=== PATIENT | male | born 1970 | race Caucasian/White ===

== ENCOUNTER 2018-05-31 05:15 | Inpatient (IN) | payer OTHER ==
[2018-05-31] VITALS (16 sets, daily range): BP systolic 96–148; BP diastolic 60–87
[~2018-05-31] VITALS: Ht 190.5 cm; Wt 79.4 kg
[~2018-05-31 05:15] MED LIST: IBUPROFEN600 MG ORAL
[2018-05-31] MEDS ORDERED: Midazolam 2mg/2ml Inj ONE (06:28)
[2018-05-31] MEDS ORDERED: fentaNYL 100 mcg/2 mL IV ONE (06:28)
[2018-05-31] MEDS ORDERED: Succinylcholine 20mg/ml 10ml vial ONE (06:33)
[2018-05-31] MEDS ORDERED: Zemuron 50mg/5ml Inj IV ONE (06:33)
[2018-05-31] MEDS ORDERED: Sterile Water Irrig 1000ml IRRIG ONE (07:00)
[2018-05-31] MEDS ORDERED: Propofol 1,000mg/ 100ml btl IV ONE (07:00)
[2018-05-31] MEDS ORDERED: Dexamethasone 4mg/ml vial ONE (07:00)
[2018-05-31] MEDS ORDERED: NS Irrig 1000ml ONE (07:00)
[2018-05-31] MEDS ORDERED: LR 1000ml ONE (07:00)
[2018-05-31] MEDS ORDERED: ceFAZolin sod 2 GM in D5W 110 ML IVPB ONE (07:00)
[2018-05-31] MEDS ORDERED: Vancomycin 1gm vial IVPB ONE (07:09)
[2018-05-31] MEDS ORDERED: Gelfoam Size TOPIC ONE (07:10)
[2018-05-31] MEDS ORDERED: Thrombin 5000 units TOPIC ONE (07:10)
[2018-05-31] MEDS ORDERED: Bacitracin 50000 Units Vial ONE (07:10)
--- NOTE | 2018-05-31 07:20 | Pre-Procedure Note/Attestation ---
Pre-Procedure Note/Attestation Complete Prior to Procedure Planned Procedure: not applicable Procedure Narrative: C56 artificial disc replacement, C67 anterior cervical discectomy and fusion Indications for Procedure Pre-Operative Diagnosis: C56 and C67 herniation Attestation I attest that I discussed the nature of the procedure; its benefits; risks and complications; and alternatives (and the risks and benefits of such alternatives ), prior to the procedure, with the patient (or the patient's legal electroplating sales representative). I attest that, if there was a reasonable possibility of needing a blood transfusion, the patient (or the patient's legal electroplating sales representative) was given the [facility] standardized written summary, pursuant to the Gary Adell Blood Safety Act ([place] Health and Safety Code # 1645, as amended). I attest that I re-evaluated the patient just prior to the surgery and that there has been no change in the patient's H&P, except as documented below: Andrea Nelson MD May 31, 2018 07:20
--- NOTE | 2018-05-31 07:22 | Brief Operative Note ---
Immediate Post Operative Note Operative Note Chief Complaint: neck pain and radiculopathy Pre-op Diagnosis: C56 and C67 herniation Procedure: C56 artificial disc replacement, C67 anterior cervical discectomy and fusion Post-op Diagnosis: same as pre-op Findings: consistent w/pre-op dx studies Surgeon: Dayana Nelson Curriculum Consultant: Yolie Colindres Additional Surgeons: JULIETTE Le Anesthesiologist: Vashti Anesthesia: general Specimen: none Complications: none Condition: stable Fluids: IVF Estimated Blood Loss: minimal Drains: none Implant(s) used?: Yes - prodisc c sz 5, nuvasive interlock c sz 6 screws 13x3 Andrea Nelson MD May 31, 2018 07:22
[2018-05-31] MEDS ORDERED: Morphine Sulfate 4mg/ml Inj (IV USE ONLY) IV PRN ×2 (07:30)
[2018-05-31] MEDS ORDERED: Metoclopramide 10mg/2ml Inj IVP PRN (07:30)
[2018-05-31] MEDS ORDERED: Milk of Magnesia 30ml Ud ORAL PRN (07:30)
[2018-05-31] MEDS ORDERED: HYDROcodone/Acetamin 5/325 tab ORAL PRN (07:30)
[2018-05-31] MEDS ORDERED: Morphine Sulfate 2mg/ml Inj(IV/IM USE ONLY) IV PRN (07:30)
[2018-05-31] MEDS ORDERED: Naloxone 0.4mg/ml Inj IVP PRN (07:30)
[2018-05-31] MEDS ORDERED: HYDROmorphone 1mg/ml Carpuject IVP PRN (07:30)
[2018-05-31] MEDS ORDERED: Chloraseptic Spray 20mL Bottle ORAL PRN (07:30)
[2018-05-31] MEDS ORDERED: HYDROcodone/Acetamin 7.5/325 tab ORAL PRN ×2 (07:30)
[2018-05-31] MEDS ORDERED: Morphine Sulfate 10mg/ml Inj ONE (08:01)
[2018-05-31] MEDS ORDERED: Sodium Chloride 10ml vial INJ ONE (08:01)
[2018-05-31] MEDS ORDERED: Glycopyrrolate 0.2mg/ml 1ml Vial ONE (08:17)
[2018-05-31] MEDS ORDERED: Neostigmine 1mg/ml 10ml Inj ONE (08:17)
--- NOTE | 2018-05-31 08:29 | Anethesia Preoperative Eval ---
Anesthesia Pre-op PMH/ROS General Date of Evaluation: May 31, 2018 Time of Evaluation: 07:05 Anesthesiologist: Shimon ASA Score: ASA 2 Mallampati Score Class I : Soft palate, uvula, fauces, pillars visible Class II: Soft palate, uvula, fauces visible Class III: Soft palate, base of uvula visible Class IV: Only hard plate visible Mallampati Classification: Class II Surgeon: Leslie Diagnosis: Cervical radiculopathy Surgical Procedure: ACDF Anesthesia History: none Social History: smoking - h/o Family History: no anesthesia problems Allergies: Coded Allergies: No Known Allergies (Unverified , 05/27/18) Patient NPO?: Yes NPO Date: May 31, 2018 NPO Time: 2229 Past Medical History Cardiovascular: Denies: HTN, CAD, GA, valve dz, arrhythmia, other Pulmonary: Denies: asthma, COPD, MARILU, other Gastrointestinal/Genitourinary: Reports: GERD; Denies: CRI, ESRD, other Neurologic/Psychiatric: Reports: other - chronic pain; Denies: dementia, CVA, depression/anxiety, TIA Endocrine: Denies: DM, hypothyroidism, steroids, other HEENT: Denies: cataract (L), cataract (R), glaucoma, AKUTAN (L), AKUTAN (R), other Hematology/Immune: Denies: anemia, DVT, bleeding disorder, other Musculoskeletal/Integumentary: Denies: OA, RA, DJD, DDD, edema, other PMH Narrative: as above PSxH Narrative: Knee and shoulder scope, Achilles tendon Anesthesia Pre-op Phys. Exam Physician Exam Last Vital Signs Date Time Temp Pulse Resp B/P (MAP) Pulse Ox O2 Delivery O2 Flow Rate FiO2 05/31/18 06:11 Room Air 05/31/18 05:53 98.1 18 125/87 (100) 97 Constitutional: NAD Neurologic: CN 2-12 intact Cardiovascular: RRR, no M/R/G Respiratory: CTA Gastrointestinal: S/NT/ND Airway Exam Mallampati Score: Class II MO: full Neck: stiff ROM: limited Teeth: missing Anesthesia Pre-op A/P Labs see chart Studies Pre-op Studies: EKG - NSR, CXR - WNL Risk Assessment & Plan Assessment: ASA 2 Plan: GA with ETT, neuromonitoring Status Change Before Surgery: No Pre-Antibiotics Drug: Ancef 2gr. Given Within 1 Hr of Incision: Yes Time Given: 07:55 Hebert Robins MD May 31, 2018 08:29
[2018-05-31] MEDS ORDERED: Hydromorphone 0.5mg/0.5ml inj IVP PRN (08:30)
[2018-05-31] MEDS ORDERED: LR 1000ml 1,000 ML IVLG SCH (08:30)
[2018-05-31] MEDS ORDERED: Meperidine 50mg/ml Inj(FOR RIGORS ONLY) IV PRN (08:30)
[2018-05-31] MEDS ORDERED: Ketorolac 30mg Inj IV PRN (08:30)
[2018-05-31] MEDS ORDERED: Acetaminophen (Non formulary) 100 ML IV ONE (08:30)
[2018-05-31] MEDS ORDERED: Midazolam 2mg/2ml Inj IVP PRN (08:30)
[2018-05-31] MEDS ORDERED: DiphenhydrAMINE 50mg/ml Inj IVP PRN (08:30)
[2018-05-31] MEDS ORDERED: Propofol 200mg/20ml IV ONE (09:00)
[2018-05-31] MEDS ORDERED: Ketorolac 30mg Inj ONE (09:54)
--- NOTE | 2018-05-31 10:43 | Immediate Post-Op Evaluation ---
Immediate Post-Op Evalulation Immediate Post-Op Evalulation Procedure: ACDF C5-C6-C7 Date of Evaluation: May 31, 2018 Time of Evaluation: 10:41 IV Fluids: 1200 Blood Products: none Estimated Blood Loss: 50 Urinary Output: 300 Blood Pressure Systolic: 136 Blood Pressure Diastolic: 74 Pulse Rate: 78 Respiratory Rate: 20 O2 Sat by Pulse Oximetry: 99 Temperature (Fahrenheit): 97.7 Pain Score (1-10): 2 Nausea: No Vomiting: No Complications none Patient Status: awake, patent, extubated, none Hydration Status: adequate Hebert Robins MD May 31, 2018 10:42
--- NOTE | 2018-05-31 11:48 | NUR ---
NURSE NOTES: REC'D FROM PACU SP ADR,ACDF C5,C6,C7. AWAKE/ALERT. ANTERIOR NECK DERMABAND DRESSING DRY AND INTACT WITH ICE PACK ON. V/S TAKEN. NO C/O PAIN. WITH MILD NUMBNESS ON LEFT FINGERS.IN NO ACUTE DISTRESS.
--- NOTE | 2018-05-31 12:21 | Diagnostic Imaging Report ---
INDICATION: Pain, intraoperative TECHNIQUE: Intraoperative imaging Fluoroscopy time: 31 seconds Total dose: 0.0524 mGym2 Total number of images: 5 COMPARISON: None FINDINGS: Intraoperative images demonstrate a needle projected over the C5-6 disc. Subsequent images demonstrate a surgical tool anterior to the C5-6 disc. Subsequent images document placement of a disc prosthesis at C5-6 and anterior fusion hardware at C6-7 IMPRESSION: Intraoperative imaging, as described
[2018-05-31] MEDS: NS w/KCl 20mEq 1,000 ML IV SCH ×2 (12:45→23:11)
[2018-05-31] MEDS: Docusate 100mg cap ORAL SCH ×2 (13:06→17:54)
--- NOTE | 2018-05-31 13:53 | NUR ---
NURSE NOTES: DR Carl DIMAS NOTIFIED OF PT'S ADMISSION.
[2018-05-31] MEDS: Dexamethasone 4mg/ml vial IVP SCH ×2 (15:59→21:35)
[2018-05-31] MEDS: ceFAZolin 1gm/50ml Premix 50 ML IV SCH (17:58)
--- NOTE | 2018-05-31 18:51 | NUR ---
NURSE NOTES: CONDITION STABLE. NO DISCOMFORT.
--- NOTE | 2018-05-31 19:15 | NUR ---
HAND-OFF: Report given to SAQIB TIRADO.
--- NOTE | 2018-05-31 19:17 | NUR ---
NURSE NOTES: Report received from CANDIDA Jasmine. Patient is in stable condition lying comfortably in bed. Bed is in lowest position, brakes engaged, side rails up x3 with call light within reach. Will continue to monitor.
[2018-06-01] VITALS: BP 107/63
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
[2018-06-01] MEDS: ceFAZolin 1gm/50ml Premix 50 ML IV SCH ×2 (02:13→09:56)
[2018-06-01 04:00] VITALS: BP 113/74
[2018-06-01] MEDS: Dexamethasone 4mg/ml vial IVP SCH ×2 (04:04→09:56)
--- NOTE | 2018-06-01 07:16 | NUR ---
HAND-OFF: Report given to CANDIDA Jasmine. Plan of care endorsed.
--- NOTE | 2018-06-01 07:26 | NUR ---
NURSE NOTES: AWAKE/ALERT. ANT NECK DERMABAND DRESSING DRY AND INTACT. NO C/O PAIN. IN NO DISTRESS.
[2018-06-01 08:00] VITALS: BP 116/75
[2018-06-01] MEDS ORDERED: NORCO 10-325 T1 EACH ORAL ×2 (08:12→08:13)
[2018-06-01] MEDS: Docusate 100mg cap ORAL SCH (08:56)
[2018-06-01] MEDS: NS w/KCl 20mEq 1,000 ML IV SCH (08:57)
[2018-06-01 09:48] VITALS: BP 116/74
--- NOTE | 2018-06-01 09:48 | 48 Hour Post Anesthesia Eval ---
Post Anesthesia Evaluation Procedure: ACDF C5-C6-C7 Date of Evaluation: Jun 01, 2018 Time of Evaluation: 09:47 Blood Pressure Systolic: 116 0: 74 Pulse Rate: 68 Respiratory Rate: 20 Temperature (Fahrenheit): 97.6 O2 Sat by Pulse Oximetry: 98 Airway: patent Nausea: No Vomiting: No Pain Intensity: 2 Hydration Status: adequate Cardiopulmonary Status: stable Mental Status/LOC: patient returned to baseline Follow-up Care/Observations: n/a Post-Anesthesia Complications: none Follow-up care needed: ready to discharge Hebert Robins MD Jun 01, 2018 09:48
[2018-06-01] MEDS ORDERED: Tubing IV Secondary IV ONE (09:57)
--- NOTE | 2018-06-01 10:00 | NUR ---
PT Note PT melyssa completed. Patient is safe in mobility and gait. No further PT needed at this time. Addendum: 06/01/18 at 1117 by EMRE TURK PT Amended: Links added.
--- NOTE | 2018-06-01 10:53 | NUR ---
NURSE NOTES: discharged hme per wheelchair accpd by friend in stable condition. discharge instuctions and rx given.
--- NOTE | 2018-06-01 12:33 | General Progress Note ---
Assessment/Plan Assessment/Plan C56 and C67 herniation C56 artificial disc replacement, C67 anterior cervical discectomy and fusion Cervical disc disease PLAN 1. incentive spirometry 2. SCDs 3. PT evaluation and therapy 4. Hydration 5. Pain management 6. discharge today Subjective Allergies: Coded Allergies: No Known Allergies (Unverified , 05/27/18) Subjective seen earlier doing well dispo planned and discussed Objective Last 24 Hour Vital Signs Date Time Temp Pulse Resp B/P (MAP) Pulse Ox O2 Delivery O2 Flow Rate FiO2 06/01/18 09:48 68 20 98 06/01/18 08:20 Room Air 06/01/18 08:00 98.2 74 19 116/75 (89) 96 06/01/18 04:00 98.4 75 20 113/74 (87) 95 06/01/18 00:00 99.0 69 20 107/63 (78) 96 05/31/18 21:00 Room Air 05/31/18 20:00 98.5 60 17 100/60 (73) 97 05/31/18 16:00 98.2 73 18 109/73 (85) 98 05/31/18 14:50 98.2 78 18 104/68 (80) 98 05/31/18 13:30 98.3 76 18 111/74 (86) 98 05/31/18 12:50 98.0 73 18 96/62 (73) 98 Intake and Output 05/31/18 06/01/18 18:59 06:59 Intake Total 1950 ml Output Total 350 ml Balance 1600 ml IV Total 1950 ml Output Urine Total 300 ml Estimated Blood Loss 50 ml # Voids 5 3 Height (Feet): 6 Height (Inches): 3.00 Weight (Pounds): 175 Objective WDWN NAD clear breath sounds bilaterally without rhonchi or wheeze [id number] without MRG NABS nontender no HSM no CCE nonfocal Jhonatan Flor MD Jun 01, 2018 12:33
--- NOTE | 2018-06-01 12:34 | NUR ---
CASE MANAGEMENT: INITIAL REVIEW 05/31/2018 47 YO M PRESENTED FOR SURGERY SI:HERNIATED NUCLEUS PULPOSUS. PAIN RADICULOPATHY. T 98.1 HR 88 RR 18 B/P 125/87 SATS 97% ON RA NO LABS TODAY IS: OR MEDS PATIENT ADMITTED TO MED/SURG 05/31/2018 @ 0722 DCP: PATIENT TO BE DISCHARGED TO HOME ONCE MEDICALLY CLEARED. PLAN OF CARE: PREOPERATIVE DIAGNOSES: 1. Intractable neck pain. 2. Radiculopathy. 3. Herniation, C5-C6, C6-C7. 4. Neural foraminal stenosis, C5-C6, C6-C7. 5. Stenosis. POSTOPERATIVE DIAGNOSES: 1. Intractable neck pain. 2. Radiculopathy. 3. Herniation, C5-C6, C6-C7. 4. Neural foraminal stenosis, C5-C6, C6-C7. 5. Stenosis. PROCEDURE PERFORMED: 1. Anterior cervical discectomy and artificial disc replacement of C5-C6 using a Synthes ProDisc C size 5. 2. Anterior cervical discectomy and fusion of C6-C7 NuVasive Interlock-C size 6 PEEK cage and three 13 mm screws and 1 mL of Osteocel allograft bone and local autograft. 3. Use of intraoperative microscope. 4. Motor-evoked potential monitoring. 5. Somatosensory-evoked potential monitoring. 6. Supervision and interpretation of fluoroscopy. 06/01/2018>>> DISCHARGED TO HOME Addendum: 06/01/18 at 1638 by Cindy Carr CM INTERQUAL MET
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
== END 2018-06-01 10:50 | disposition home or self-care (01) | DRG 473 ==
LOC: SDSOVERFLO 05:15 → 3E 11:48
PROC: 0RR30JZ Replacement of Cervical Vertebral Disc with Synthetic Substitute, Open Approach (ICD-10-PCS; principal; 2018-05-31 07:00)
PROC: 0RB30ZZ Excision of Cervical Vertebral Disc, Open Approach (ICD-10-PCS; principal; 2018-05-31 07:00)
PROC: 0RG10A0 Fusion of Cervical Vertebral Joint with Interbody Fusion Device, Anterior Approach, Anterior Column, Open Approach (ICD-10-PCS; principal; 2018-05-31 07:00)
DX: M50.122 Cervical disc disorder at C5-C6 level with radiculopathy (principal); M48.02 Spinal stenosis, cervical region; V89.2XXS Person injured in unspecified motor-vehicle accident, traffic, sequela; M25.512 Pain in left shoulder
CPT/HCPCS: 36415; 72040; 76000; 86850; 86900; 86901; 87081; J2250; J2710